=== PATIENT | male | born 1995 | race Caucasian/White ===

== ENCOUNTER 2023-07-13 22:01 | Emergency (ER) | payer BC ==
[2023-07-13 22:08] VITALS: BP 131/78; PULSE 93; RESP 18; TEMP 97.7; BMI 32.7
[2023-07-13 23:30] LABS: VENOUS BASE EXCESS 0.3 mmol/L (-2-2); VENOUS O2 SATURATION 40.8 % (70-80); VENOUS PCO2 47.4 mmHg (38-52); VENOUS PH 7.361 (7.310-7.410)
[2023-07-13] MEDS ORDERED: ONDANSETRON 4 MG/2 ML VIAL ONE (23:31)
[2023-07-13] MEDS ORDERED: FAMOTIDINE 20 MG/50 ML IVPB 20 MG/50 ML MG IVPB ONE (23:31)
[2023-07-13] MEDS ORDERED: ACETAMINOPHEN INJECTION 100 ML IVPB ONE (23:31)
[2023-07-13 23:35] LABS: BASO % 0.2 % (0-2.0); EOS % 0.6 % (0-4.5); HEMATOCRIT 42.7 % (35.4-49); HEMOGLOBIN 13.9 GM/dL (11.7-16.9); LYMPH % 10.5 % (8-40); MCH 24.9 pg (25.7-33.7); MCHC 32.7 g/dl (32.0-35.9); MEAN CELL VOLUME 76.3 fl (80-96); MEAN PLT VOLUME 10.1 fl (7.5-11.1); MONO % 7.4 % (3.8-10.2); NEUT % 81.3 % (42.8-82.8); PLATELET COUNT 201 10^3/uL (134-434); RBC 5.59 M/mm3 (4.00-5.60); RDW 14.7 % (11.9-15.9); WHITE BLOOD COUNT 9.9 K/mm3 (4.0-10.0)
[2023-07-13] MEDS: ONDANSETRON 4 MG/2 ML VIAL IVPB ONE (23:42)
[2023-07-13] MEDS: ACETAMINOPHEN 1000 MG/100 ML BAG IVPB ONE (23:42)
[2023-07-13] MEDS: FAMOTIDINE 20 MG/50 ML IVPB 20 MG/50 ML MG IVPB ONE (23:42)
[2023-07-13] MEDS: SODIUM CHLORIDE 0.9% 500 ML INFUS.BAG IV ONE (23:42)
[2023-07-13 23:53] LABS: POTASSIUM 4.1 mmol/L (3.5-5.1)
[2023-07-13 23:55] LABS: ALBUMIN 3.5 g/dl (3.4-5.0)
[2023-07-13 23:56] LABS: BLOOD UREA NITROGEN 8.5 mg/dL (7-18); MAGNESIUM 2.1 mg/dL (1.8-2.4)
[2023-07-13 23:59] LABS: CREATININE 0.9 mg/dL (0.55-1.3)
[2023-07-14] LABS: BILIRUBIN,TOTAL 0.4 mg/dL (0.2-1); TOT PROT 6.9 g/dl (6.4-8.2)
[2023-07-14] MEDS: DICYCLOMINE HCL 20 MG/2 ML AMPUL IM ONE (00:43)
[2023-07-14] MEDS ORDERED: KETOROLAC TROMETHAMINE 15 MG/ML VIAL ONE (01:42)
[2023-07-14] MEDS: KETOROLAC TROMETHAMINE 15 MG/ML VIAL IVPUSH ONE (01:47)
== END 2023-07-14 03:26 | disposition home or self-care (01) ==
LOC: JER 22:01
PROC: 3E033GC Introduction of Other Therapeutic Substance into Peripheral Vein, Percutaneous Approach (ICD-10-PCS; principal; 2023-07-13)
PROC: 3E030NZ Introduction of Analgesics, Hypnotics, Sedatives into Peripheral Vein, Open Approach (ICD-10-PCS; 2023-07-13)
PROC: 3E030GC Introduction of Other Therapeutic Substance into Peripheral Vein, Open Approach (ICD-10-PCS; 2023-07-13)
PROC: 3E030GC Introduction of Other Therapeutic Substance into Peripheral Vein, Open Approach (ICD-10-PCS; 2023-07-14)
PROC: 3E023GC Introduction of Other Therapeutic Substance into Muscle, Percutaneous Approach (ICD-10-PCS; 2023-07-14)
DX: R11.2 Nausea with vomiting, unspecified (principal); R19.7 Diarrhea, unspecified; R10.84 Generalized abdominal pain; Z20.822 Contact with and (suspected) exposure to COVID-19
CPT/HCPCS: 0241U-QW; 36415; 74177-TC; 80053; 82010; 82803; 83690; 83735; 85025; 99285-25; J0131; Q9967